=== PATIENT | female | born 1960 | race Caucasian/White ===

== ENCOUNTER 2018-05-31 08:20 | Outpatient (CLI) | payer BC | END 2018-05-31 20:38 | disposition home or self-care (01) | LOC: SMA 08:20 | PROVIDERS: ATTEND Specialist | DX: Z12.31 Encounter for screening mammogram for malignant neoplasm of breast (principal) | CPT/HCPCS: 77067 ==

== ENCOUNTER 2020-04-01 08:11 | Outpatient (CLI) | payer BC | END 2020-04-01 20:34 | disposition home or self-care (01) | LOC: SMA 08:11 | PROVIDERS: ATTEND Specialist | DX: Z12.31 Encounter for screening mammogram for malignant neoplasm of breast (principal) | CPT/HCPCS: 77067 ==

== ENCOUNTER 2021-07-27 08:22 | Outpatient (CLI) | payer BC | END 2021-07-27 20:17 | disposition home or self-care (01) | LOC: SMA 08:22 | PROVIDERS: ATTEND Specialist | DX: Z12.31 Encounter for screening mammogram for malignant neoplasm of breast (principal) | CPT/HCPCS: 77067 ==